=== PATIENT | male | born 1955 | race Caucasian/White ===

== ENCOUNTER 2018-05-16 02:15 | Observation (INO) ==
[2018-05-16] MEDS ORDERED: Levofloxacin 750 MG/150 ML 750 MG/150 ML BAG IVPB ONE (02:38)
[2018-05-16] MEDS ORDERED: Ipratropium/Albuterol Neb 3 ML IH ONE (02:38)
[2018-05-16] MEDS: levoFLOXacin 750 MG TABLET PO ONE ×2 (02:40→02:42)
[2018-05-16 02:43] LABS: Eosinophils % 0.2 %
[2018-05-16 02:45] LABS: Basophils % 0.2 %; Hematocrit 51.1 % (37.5-50.1); Hemoglobin 16.5 g/dL (12.9-16.9); Immature Granulocytes % 0.7 % (0-4); Lymphocytes # 3.1 K/mcL (0.6-4.6); Lymphocytes % 11.9 %; Mean Corpuscular HGB Conc 32.3 g/dL (31.6-35.5); Mean Corpuscular Volume 95.9 fL (83.0-100.0); Mean Platelet Volume 8.6 fL (9.4-12.4); Monocytes # 1.8 K/mcL (0.0-1.3); Monocytes % 6.9 %; Neutrophils # 20.8 K/mcL (1.6-8.9); Platelet Count 284 K/mcL (140-400); Red Blood Count 5.33 M/mcL (4.19-5.50); Red Cell Distribution Width 14.7 % (11.5-14.5); Segmented Neutrophils % 80.1 %
[2018-05-16 02:46] LABS: Basophils # 0.1 K/mcL (0.0-0.2); Eosinophils # 0.1 K/mcL (0.0-0.6)
[2018-05-16 03:05] LABS: BUN/Creatinine Ratio 18 (6-26); Blood Urea Nitrogen 16 mg/dL (8-23); Calcium 8.9 mg/dL (8.6-10.3); Carbon Dioxide 26 mEq/L (23-29); Chloride 107 mEq/L (98-107); Glucose 115 mg/dL (70-105); Osmolality,Calculated 294 (280-300); Potassium 3.8 mEq/L (3.5-5.1); Sodium 141 mEq/L (136-145); Troponin I < 0.03 ng/mL (< 0.04); eGFR For Non-African Americans > 60 (> 60)
--- NOTE | 2018-05-16 03:50 | Emergency Department Note ---
Disposition Clinical Impression: Acute exacerbation of chronic obstructive airways disease Disposition: Admitted As Inpatient Condition: Good Referrals: Forrest Tyson MD [Primary Care Provider] - Time of Disposition: 04:33 General Adult HPI - General Chief complaint: ED Shortness of Breath/Dyspnea Stated complaint: SOB Time Seen by Provider: 05/16/18 02:17 Source: patient, family Limitations: no limitations Nursing Notes Reviewed: Yes Vital Signs Reviewed: Yes - History of Present Illness HPI Narrative: One-week history of increasing shortness of breath. Was diagnosed with pneumonia however is gotten worse since he is been on antibiotics. Does have a productive sputum. Chills. No recorded fever. No chest pain. Has been taking 70 mg of prednisone daily. No relief of his symptoms. Progressively getting worse. Pain Scale: 0 - Related Data Previous Rx's Medication Instructions Recorded Levofloxacin [Levaquin] 500 mg PO DAILY #6 tablet 02/19/17 predniSONE [PredniSONE] 40 mg PO DAILY #4 tablet 02/19/17 Allergies Allergy/AdvReac Type Severity Reaction Status Date / Time No Known Allergies Allergy Verified 02/19/17 16:54 All systems ED: reviewed and negative except as stated. Constitutional: Reports: chills. Denies: fever ENT ED: Reports: congestion Cardiovascular: Denies: chest pain, palpitations, syncope Respiratory: Reports: cough, dyspnea, wheezes, sputum production. Denies: hemoptysis Gastrointestinal: Denies: abdominal pain, nausea, vomiting, diarrhea, hematemesis, melena, hematochezia Genitourinary: Denies: urgency, dysuria, frequency, hematuria Musculoskeletal: Denies: back pain, neck pain Integumentary: Denies: rash Neurological: Denies: headache, weakness Past Medical History - Past Medical History Attestation: Yes The following information was validated with the patient. Source: patient Medical history: Reports: COPD, myocardial infarction - Social History Smoking Status: Current every day smoker Alcohol use: Reports: none Drug use: Reports: none Physical Exam - General Limitations: no limitations General appearance: alert, in distress (Tachypneic, diaphoretic, retracting.) - Head Head exam: atraumatic, normocephalic, normal inspection - Eye Eye exam: Present: normal appearance, PERRL, EOMI - ENT ENT exam: normal exam, normal oropharynx, mucous membranes moist - Neck Neck exam: Present: normal inspection, full ROM, trachea midline - Chest Chest inspection: Present: normal inspection, symmetric chest wall rise. Absent : tenderness, abscess - Respiratory Respiratory exam: Present: respiratory distress, wheezes, accessory muscle use, prolonged expiratory phase, other (Patient tripoding) - Cardiovascular Cardiovascular exam: Present: regular rate, normal rhythm, normal heart sounds - Abdominal Exam Abdominal exam: Present: soft, Non-Tender. Absent: tenderness, distention, guarding, rebound, rigidity, organomegaly, Zavala's sign, Rovsing's sign, tenderness at McBurney's Point - Extremities Exam Extremities exam: Present: normal inspection, full ROM, normal capillary refill. Absent: tenderness, pedal edema - Neurological Exam Neurological exam: Present: alert, oriented X3 - Psychiatric Psychiatric exam: Present: normal affect, normal mood - Skin Skin exam: Present: warm, dry, intact, normal color. Absent: rash, cyanosis, diaphoresis, erythema Course Course Narrative: Male patient presents emergency complaining of one week history of increasing shortness of breath. Patient states that he was seen on Monday 4 days ago and diagnosed with pneumonia. This is at another facility. They wanted to keep him in the hospital however he refused and went home. He states that he was placed on antibiotics this appears to be doxycycline. He states he is not getting better he is actually getting worse. He is having increasing shortness of breath. He cannot ambulate very far without getting short of breath. Generally wears 2 L of oxygen and has had beyond 5. Initially came in with an oxygen saturation in the 76 range. He was tachypneic and tripoding. Had respiratory distress and wheezing throughout. After 3 duo nebs patient does appear to be breathing easier however he is still mildly tachypneic. Denies any chest pain. Denies any fevers but does report some chills. No focal consolidation shown on the chest x-ray. We will admit patient to the hospital for COPD exacerbation. We will place him on Levaquin at this time. Vital Signs Temperature 97.4 F L 05/16/18 02:16 Pulse Rate 68 05/16/18 02:16 Respiratory Rate 24 05/16/18 02:16 Blood Pressure 194/109 05/16/18 02:16 O2 Sat by Pulse Oximetry 95 05/16/18 02:16 Temperature 97.4 F L 05/16/18 02:16 Pulse Rate 80 05/16/18 03:20 Respiratory Rate 24 05/16/18 02:16 Blood Pressure 151/84 05/16/18 03:20 O2 Sat by Pulse Oximetry 95 05/16/18 03:20 Oxygen Delivery Oxygen Delivery Nasal Cannula Medical Decision Making - Medical Records Medical records reviewed: Yes I reviewed the patient's medical records. - Lab Data Lab results reviewed: Yes I reviewed the patient's lab results. Result diagrams: 05/16/18 02:25 05/16/18 02:25 Lab Results 05/16/18 05/16/18 05/16/18 Range/Units 02:25 02:25 02:25 WBC 25.9 H (4.3-11.1) K/mcL RBC 5.33 (4.19-5.50) M/mcL Hgb 16.5 (12.9-16.9) g/dL Hct 51.1 H (37.5-50.1) % MCV 95.9 (83.0-100.0) fL MCH 31.0 (28.0-33.3) pg MCHC 32.3 (31.6-35.5) g/dL RDW 14.7 H (11.5-14.5) % Plt Count 284 (140-400) K/mcL MPV 8.6 L (9.4-12.4) fL Immature Gran % 0.7 (0-4) % Seg Neutrophils % 80.1 % Lymphocytes % 11.9 % Monocytes % 6.9 % Eosinophils % 0.2 % Basophils % 0.2 % Neutrophils # 20.8 H (1.6-8.9) K/mcL Lymphocytes # 3.1 (0.6-4.6) K/mcL Monocytes # 1.8 H (0.0-1.3) K/mcL Eosinophils # 0.1 (0.0-0.6) K/mcL Basophils # 0.1 (0.0-0.2) K/mcL Sodium 141 (136-145) mEq/L Potassium 3.8 (3.5-5.1) mEq/L Chloride 107 (98-107) mEq/L Carbon Dioxide 26 (23-29) mEq/L BUN 16 (8-23) mg/dL Creatinine 0.91 (0.70-1.30) mg/dL Est GFR ( Amer) > 60 (> 60) Est GFR (Non-Af Amer) > 60 (> 60) BUN/Creatinine Ratio 18 (6-26) Glucose 115 H (70-105) mg/dL Calculated Osmolality 294 (280-300) Calcium 8.9 (8.6-10.3) mg/dL Troponin I < 0.03 (< 0.04) ng/mL B-Natriuretic Peptide 128 H (Less than 100) pg/mL - Radiology Data Radiology results reviewed: Yes I reviewed the patient's radiology results. Chest X-Ray 05/16/18 02:34 IMPRESSION: Chronic findings in both lung bases. No acute disease. D/ / Terence Toro MD / Terence Toro MD Interpreting Provider: Terence Toro MD - EKG Data EKG #1 EKG results narrative: Junctional rhythm at a rate of 71. QRS duration is 129. QT is 400. QTC is 423. No signs of acute ischemia. Patient does have a large segment before the QRS complex. This was on previous EKG dated 02/19/2017.
--- NOTE | 2018-05-16 04:48 | Emergency Department Note ---
Disposition Clinical Impression: Acute exacerbation of chronic obstructive airways disease Disposition: Admitted As Inpatient Condition: Good Time of Disposition: 04:33 General Adult HPI - General Chief complaint: ED Shortness of Breath/Dyspnea Stated complaint: SOB Time Seen by Provider: 05/16/18 02:17 Source: patient, family Limitations: no limitations Nursing Notes Reviewed: Yes Vital Signs Reviewed: Yes - History of Present Illness Pain Scale: 0 - Related Data Previous Rx's Medication Instructions Recorded Levofloxacin [Levaquin] 500 mg PO DAILY #6 tablet 02/19/17 predniSONE [PredniSONE] 40 mg PO DAILY #4 tablet 02/19/17 Allergies Allergy/AdvReac Type Severity Reaction Status Date / Time No Known Allergies Allergy Verified 02/19/17 16:54 Constitutional: Reports: chills. Denies: fever ENT ED: Reports: congestion Cardiovascular: Denies: chest pain, palpitations, syncope Respiratory: Reports: cough, dyspnea, wheezes, sputum production. Denies: hemoptysis Gastrointestinal: Denies: abdominal pain, nausea, vomiting, diarrhea, hematemesis, melena, hematochezia Genitourinary: Denies: urgency, dysuria, frequency, hematuria Musculoskeletal: Denies: back pain, neck pain Integumentary: Denies: rash Neurological: Denies: headache, weakness Past Medical History - Past Medical History Medical history: Reports: COPD, myocardial infarction - Social History Smoking Status: Current every day smoker Alcohol use: Reports: none Drug use: Reports: none Physical Exam - General Limitations: no limitations General appearance: alert, in distress (Tachypneic, diaphoretic, retracting.) Course Vital Signs Temperature 97.4 F L 05/16/18 02:16 Pulse Rate 68 05/16/18 02:16 Respiratory Rate 05/16/18 02:16 Blood Pressure 194/109 05/16/18 02:16 O2 Sat by Pulse Oximetry 95 05/16/18 02:16 Temperature 97.4 F L 05/16/18 02:16 Pulse Rate 70 05/16/18 04:19 Respiratory Rate 24 05/16/18 02:16 Blood Pressure 152/98 05/16/18 04:19 O2 Sat by Pulse Oximetry 93 05/16/18 04:19 Oxygen Delivery Oxygen Delivery Nasal Cannula Medical Decision Making - Medical Records Medical records reviewed: Yes I reviewed the patient's medical records. - Lab Data Lab results reviewed: Yes I reviewed the patient's lab results. Result diagrams: 05/16/18 02:25 05/16/18 02:25 Lab Results 05/16/18 05/16/18 05/16/18 Range/Units 02:25 02:25 02:25 WBC 25.9 H (4.3-11.1) K/mcL RBC 5.33 (4.19-5.50) M/mcL Hgb 16.5 (12.9-16.9) g/dL Hct 51.1 H (37.5-50.1) % MCV 95.9 (83.0-100.0) fL MCH 31.0 (28.0-33.3) pg MCHC 32.3 (31.6-35.5) g/dL RDW 14.7 H (11.5-14.5) % Plt Count 284 (140-400) K/mcL MPV 8.6 L (9.4-12.4) fL Immature Gran % 0.7 (0-4) % Seg Neutrophils % 80.1 % Lymphocytes % 11.9 % Monocytes % 6.9 % Eosinophils % 0.2 % Basophils % 0.2 % Neutrophils # 20.8 H (1.6-8.9) K/mcL Lymphocytes # 3.1 (0.6-4.6) K/mcL Monocytes # 1.8 H (0.0-1.3) K/mcL Eosinophils # 0.1 (0.0-0.6) K/mcL Basophils # 0.1 (0.0-0.2) K/mcL Sodium 141 (136-145) mEq/L Potassium 3.8 (3.5-5.1) mEq/L Chloride 107 (98-107) mEq/L Carbon Dioxide 26 (23-29) mEq/L BUN 16 (8-23) mg/dL Creatinine 0.91 (0.70-1.30) mg/dL Est GFR ( Amer) > 60 (> 60) Est GFR (Non-Af Amer) > 60 (> 60) BUN/Creatinine Ratio 18 (6-26) Glucose 115 H (70-105) mg/dL Calculated Osmolality 294 (280-300) Lactic Acid (0.5-2.2) mmol/L Calcium 8.9 (8.6-10.3) mg/dL Troponin I < 0.03 (< 0.04) ng/mL B-Natriuretic Peptide 128 H (Less than 100) pg/mL 05/16/18 Range/Units 02:51 WBC (4.3-11.1) K/mcL RBC (4.19-5.50) M/mcL Hgb (12.9-16.9) g/dL Hct (37.5-50.1) % MCV (83.0-100.0) fL MCH (28.0-33.3) pg MCHC (31.6-35.5) g/dL RDW (11.5-14.5) % Plt Count (140-400) K/mcL MPV (9.4-12.4) fL Immature Gran % (0-4) % Seg Neutrophils % % Lymphocytes % % Monocytes % % Eosinophils % % Basophils % % Neutrophils # (1.6-8.9) K/mcL Lymphocytes # (0.6-4.6) K/mcL Monocytes # (0.0-1.3) K/mcL Eosinophils # (0.0-0.6) K/mcL Basophils # (0.0-0.2) K/mcL Sodium (136-145) mEq/L Potassium (3.5-5.1) mEq/L Chloride (98-107) mEq/L Carbon Dioxide (23-29) mEq/L BUN (8-23) mg/dL Creatinine (0.70-1.30) mg/dL Est GFR ( Amer) (> 60) Est GFR (Non-Af Amer) (> 60) BUN/Creatinine Ratio (6-26) Glucose (70-105) mg/dL Calculated Osmolality (280-300) Lactic Acid 2.5 H (0.5-2.2) mmol/L Calcium (8.6-10.3) mg/dL Troponin I (< 0.04) ng/mL B-Natriuretic Peptide (Less than 100) pg/mL - Radiology Data Radiology results reviewed: Yes I reviewed the patient's radiology results. Chest X-Ray 05/16/18 02:34 IMPRESSION: Chronic findings in both lung bases. No acute disease. D/ / Terence Toro MD / Terence Toro MD Interpreting Provider: Terence Toro MD - EKG Data EKG #1 EKG attestation: Yes I reviewed and interpreted this EKG. EKG results narrative: EKG shows a probable junctional rhythm with a PAC. Ventricular rate 71. Moderate intraventricular conduction delay. No acute ST segment elevation or depression. Critical Care Time Critical Care Time: Yes Total Critical Care Time: 35 Attestation: Critical care performed: Time is exclusive of separately billable procedures. Time includes: direct patient care, patient reassessment, coordination of patient care, interpretation of data (laboratory data, radiology data, and respiratory data), review of patient's medical records, medical consultation and documentation of patient care. Procedures included in critical care time: Procedures excluded from critical care time: Attestation Statement - Attestation Attestation: I, Pavel Mora MD, personally evaluated this patient and discussed their management with the resident physician. I reviewed the resident's note and agree with the documented findings, medical decision making, and plan of care. 62-year-old male with history of COPD presents to the emergency department by ambulance with a complaint of increased difficulty breathing over the past several days. He was seen 3 days ago at another facility and diagnosed with pneumonia but refused admission. He was placed on antibiotics. reports he has gotten progressively worse since. He normally wears oxygen at 2-1/2 L but has increased it to 5 with continued shortness of breath. There has been some productive cough. No fever. No chest pain. On examination patient is a well-developed well-nourished male in moderate respiratory distress. He is alert and oriented 3. No cyanosis. Mild diaphoresis. Breath sounds are decreased bilaterally with diffuse tight bilateral expiratory wheezes. Heart regular rate and rhythm. Abdomen soft and nontender with normal bowel sounds. Labs reviewed. Chest x-ray negative. No acute changes on EKG and unchanged from prior EKG. Patient received triple DuoNeb treatment and IV steroids with some improvement in his breathing but continues to have wheezes. The hospitalist, Dr. Baldwin, was consulted and accepted admission of the patient.
[2018-05-16] MEDS ORDERED: Naloxone 0.4 MG/ML INJ IVP PRN (05:02)
[2018-05-16] MEDS ORDERED: Acetaminophen 325 MG TABLET PO PRN (05:02)
[2018-05-16] MEDS ORDERED: *HR* HYDROcodone/Acet 5/325 mg TABLET PO PRN (05:02)
--- NOTE | 2018-05-16 05:24 | Internal Med History&Physical ---
<Tariq Jaramillo - Last Filed: 05/16/18 05:53> Date of Encounter: 05/16/18 Time of Encounter: 05:08 Internal Medicine - H&P: HPI Chief complaint: SOB Admitted From: Emergency Dept Plans for Post Hospital Care: Home History of present illness: Mr. Nolan is a 62 year old male with past medical history of COPD, CAD status post [place] and CABG, HFpEF, AAA presents to emergency department with complaint of shortness of breath. Patient states his symptoms began Monday morning and have been progressively worsening. He did present to urgent care on Monday and was told he had pneumonia and was started on doxycycline and prednisone. He states that despite this, his symptoms continued to worsen. He is oxygen dependent at home wearing 2.5 L continuously but states he is only compliant at nights. He states he has had to increase his oxygen usage to 3 L and is still short of breath after walking approximately 20 feet. At baseline he can walk couple 100 feet before he becomes dyspneic. He also admits to associated cough with thick white sputum which the change from his baseline as it occurs throughout the day and is thicker. Denies any symptoms of fevers, chills, chest pain, nausea, vomiting, abdominal pain, changes in bowel movements, urinary symptoms. He does have baseline numbness and tingling. Denies any symptoms orthopnea or PND or lower shortly swelling. In the emergency department, vital signs significant for hypertension in 194/109 , respiratory rate 24 and he was markedly saturating and 70s on presentation with improvement to low 90s on 3 L of oxygen via nasal cannula. Vital signs were significant for a WBC of 25.9, lactic acid of 2.5, BNP of 128. He was reportedly much improved on duo nebs 3. Chest x-ray showed chronic findings in both lung bases with no acute disease. Most recent echocardiogram on 03/01/18 shows ejection fraction of 60-65% with mild left ventricular diastolic dysfunction. Past medical history as above Past surgical history includes multiple orthopedic surgeries, CABG Social history: One pack per day smoker since teenage years, previously 2 packs per day. Denies alcohol or recreational drug use Past Med Surg Social Fam HX - Past Medical History Medical history: COPD, myocardial infarction - Past Surgical History Additional surgical history: bypass, spinal sx - Social History Smoking Status: Current every day smoker Alcohol use: none Drug use: none Internal Medicine - H&P: Meds Albuterol Sulfate [Ventolin Hfa] 2 puff IH BID PRN 05/16/18 [History] Atorvastatin [Lipitor] 40 mg PO HS 05/16/18 [History] Benzonatate [Tessalon] 100 mg PO TID PRN 05/16/18 [History] Budesonide/Formoterol 160/4.5 [Symbicort 160/4.5] 2 puff IH BIDR 05/16/18 [ History] Clopidogrel [Plavix] 75 mg PO DAILY 05/16/18 [History] Cyanocobalamin (B-12) [Vitamin B12] 1,000 mcg IM QMONTH 05/16/18 [History] Doxycycline Hyclate [Vibramycin] 100 mg PO BID 05/16/18 [History] Lisinopril [Zestril] 10 mg PO DAILY 05/16/18 [History] Oxycodone HCl 15 mg PO Q6H PRN 05/16/18 [History] PredniSONE [Deltasone] 20 mg PO DAILY 05/16/18 [History] Tamsulosin [Flomax] 0.4 mg PO DAILY 05/16/18 [History] Testosterone Cypionate [Depo-Testosterone] 200 mg IM Q2W 05/16/18 [History] Tiotropium [Spiriva] 2 puff IH DAILY 05/16/18 [History] 3 Allergy/AdvReac Type Severity Reaction Status Date / Time No Known Allergies Allergy Verified 02/19/17 16:54 All Systems PM: A 10-system review of systems was performed and is negative for pertinent findings except as documented above in the HPI. - Constitutional Constitutional: chills, no fever(s), no lethargy - Cardiovascular Cardiovascular ROS IM: dyspnea, dyspnea on exertion, no chest pain, no diaphoresis, no edema, no orthopnea, no syncope - Respiratory Respiratory: cough, dyspnea, dyspnea on exertion, wheezing, chest congestion, change in phlegm color, no hemoptysis, no pain on inspiration, no pain with cough - Gastrointestinal Gastrointestinal: no nausea, no vomiting - Integumentary Integumentary IM: no rash - Neurological Neurological ROS: numbness, tingling - Constitutional Vitals: Temp Pulse Resp BP Pulse Ox 97.4 F L 70 24 152/98 93 05/16/18 02:16 08/01/18 04:19 05/16/18 02:16 05/16/18 04:19 05/16/18 04:19 Exam: Gen.: Vitals noted. No acute distress. AAOx3. Sitting up comfortably in bed. Speaking in full sentences HEENT: PERRL/EOMI, oropharynx clear, Normocephalic, atraumatic, moist mucous membranes Cardiac: RRR, no murmur, +S1/S2, occasional PVC Pulmonary: Wheezes present in bilateral bases more prominent on the right, diminished breath sounds, equal chest expansion Abdomen: soft, nontender, BS noted, no guarding MSK: ROM intact, no joint swelling noted Extremities: no BLE edema, nontender calf, no cyanosis or clubbing Neuro: A&Ox3, moves all extremities, no focal deficits Psych: Appropriate mood and behavior Internal Med - H&P Results - Labs CBC & Chem 7: 05/16/18 02:25 05/16/18 02:25 - Assessment and plan (1) Acute and chronic respiratory failure Current Visit: Yes Status: Acute Assessment and plan: - Acute on chronic respiratory failure likely secondary to COPD exacerbation - Patient complains of cough, change in sputum. Denies orthopnea or extremity swelling. No fevers -Chest x-ray were department shows chronic changes with no acute disease. 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 - Home use of Spiriva, Symbicort, albuterol inhalers - Failed outpatient steroids, doxycycline Plan - Continue supplemental oxygen as needed - Krista Arevalo scheduled, albuterol when necessary - Solu-Medrol 40 mg every 6 hours - Continue home Symbicort Qualifiers: Respiratory failure complication: hypoxia Qualified Code(s): J96.21 - Acute and chronic respiratory failure with hypoxia (2) Acute exacerbation of chronic obstructive airways disease Current Visit: Yes Status: Acute Assessment and plan: As above in acute and chronic respiratory failure (3) CAD (coronary artery disease) Current Visit: Yes Status: Acute Assessment and plan: - Denies chest pain, troponin unremarkable - EKG reviewed showing junctional rhythm which is consistent with previous - Continue home medications Qualifiers: Coronary Disease-Associated Artery/Lesion type: bypass graft [place] vs. transplanted heart: [place] heart Associated angina: without angina Qualified Code(s): I25.810 - Atherosclerosis of coronary artery bypass graft(s) without angina pectoris (4) Heart failure with preserved ejection fraction Current Visit: Yes Status: Chronic Assessment and plan: - Does not appear to be in acute exacerbation and more likely related to COPD as above Most recent echo as in history of present illness showing preserved ejection fraction and mild diastolic dysfunction Appears euvolemic on exam (5) Leukocytosis Current Visit: Yes Status: Acute Assessment and plan: - WBC elevation of 25 on presentation - Less likely etiology of infectious given he was started on prednisone 70 mg by urgent care - No pneumonia appreciated on chest x-ray - Antibiotics as above, continue monitor and escalate if necessary in future Qualifiers: Leukocytosis type: unspecified Qualified Code(s): D72.829 - Elevated white blood cell count, unspecified (6) Hypertension Current Visit: Yes Status: Acute Assessment and plan: - Uncontrolled on presentation at 194/109 - Has improved to 152/98 as underlying respiratory distress has resolved - We will continue home medications and monitor Qualifiers: Hypertension type: essential hypertension Qualified Code(s): I10 - Essential (primary) hypertension (7) DVT prophylaxis Current Visit: Yes Status: Acute Assessment and plan: - Heparin 5000 units every 12 hours (8) Tobacco abuse Current Visit: Yes Status: Chronic Assessment and plan: Patient unfortunately reports continuation of smoking of one pack per day. He states he has cut back from 2 packs per day. He started when he was a teenager. We did discuss at length the detrimental effects of cigarette smoking on his COPD as well as other medical issues. He acknowledges understanding to this and states that he is trying to quit after this admission. We will start him on nicotine patch while admitted - Time Spent With Patient Total time spent is greater than 50% in coordination of care (as documented) at patient's floor/unit and/or counseling patient: <Nidia Plascencia - Last Filed: 05/17/18 02:52> Date of Encounter: 05/17/18 Internal Medicine - H&P: HPI History of present illness: Mr. Nolan is a 62 year old male All Systems PM: A 10-system review of systems was performed and is negative for pertinent findings except as documented above in the HPI. - Constitutional Vitals: Temp Pulse Resp BP Pulse Ox 98.1 F 84 28 196/91 93 05/17/18 00:41 05/17/18 00:41 05/17/18 02:00 05/17/18 00:41 05/17/18 02:00 Internal Med - H&P Results - Labs CBC & Chem 7: 05/16/18 02:25 05/16/18 02:25 - Impressions ITS Impressions Pulmonary Perfusion Imaging 05/16/18 11:56 IMPRESSION: Low probability for pulmonary embolus. D/ / 05/16/2018 13:08:45 Sebastian Corey MD / lan Interpreting Provider: Sebastian Corey MD - Attending Attestation Seen and assessed. Agree with resident plan. Continue management for acute COPD exacerbation - Assessment and plan (1) Acute exacerbation of chronic obstructive airways disease Current Visit: Yes Status: Acute (2) Acute and chronic respiratory failure Current Visit: Yes Status: Acute Qualifiers: Respiratory failure complication: hypoxia Qualified Code(s): J96.21 - Acute and chronic respiratory failure with hypoxia (3) CAD (coronary artery disease) Current Visit: Yes Status: Acute Qualifiers: Coronary Disease-Associated Artery/Lesion type: bypass graft [place] vs. transplanted heart: [place] heart Associated angina: without angina Qualified Code(s): I25.810 - Atherosclerosis of coronary artery bypass graft(s) without angina pectoris (4) Heart failure with preserved ejection fraction Current Visit: Yes Status: Chronic (5) DVT prophylaxis Current Visit: Yes Status: Acute (6) Leukocytosis Current Visit: Yes Status: Acute Qualifiers: Leukocytosis type: unspecified Qualified Code(s): D72.829 - Elevated white blood cell count, unspecified (7) Hypertension Current Visit: Yes Status: Acute Qualifiers: Hypertension type: essential hypertension Qualified Code(s): I10 - Essential (primary) hypertension (8) Tobacco abuse Current Visit: Yes Status: Chronic - Time Spent With Patient Total time spent is greater than 50% in coordination of care (as documented) at patient's floor/unit and/or counseling patient:
[2018-05-16] MEDS: Nicotine 7 MG PATCH.TD24 TD SCH (07:28)
[2018-05-16] MEDS: MethylPREDNISolone 40 MG/ML VIAL IVP SCH ×4 (07:28→23:49)
[2018-05-16] MEDS: *HR* Heparin 5,000 UNIT/ML VIAL SQ SCH ×2 (07:28→18:09)
--- NOTE | 2018-05-16 10:03 | Sepsis Event Note ---
Sepsis Event Note - Evaluation Sepsis Screen: No Definite Risk Current Stage of Suspected Sepsis: ruled out Reason for ruling out sepsis: Patient has been on steroids prior to admission, may account for his leukocytosis He has no source at this time, patient has no fever or hypothermia, he has no tachycardia. sepsis is not present at this time His resp symptoms are due to his COPD Possible Source of Sepsis: other (sepsis is unlikely) - Focused Exam Date of Encounter: 05/16/18 Time of Encounter: 10:02 Vital Signs: Vital Signs Temp Pulse Resp BP Pulse Ox 05/16/18 07:24 97.9 F 79 17 159/84 94 05/16/18 05:24 97.5 F L 69 17 171/91 96 Respiratory Exam: Present: wheezes Cardiovascular Exam: Present: RRR, S1, S2 Capillary Refill: > 2 seconds Peripheral Pulse Strength: 3+ normal Peripheral Pulse Location: Pedal Skin Exam: normal turgor - Bedside Monitoring Bedside Ultrasound Performed: No Passive Leg raise/fluid bolus: not performed
[2018-05-16] MEDS: Ipratropium/Albuterol Neb 3 ML IH SCH ×3 (10:16→22:14)
[2018-05-16] MEDS: Budesonide/Formoterol 160/4.5 1 PUFF INH IH SCH ×2 (10:17→22:14)
[2018-05-16] MEDS ORDERED: Benzonatate 100 MG CAPSULE PO PRN (11:53)
[2018-05-16] MEDS: *HR* OxyCODONE Immed Rel 15 MG TABLET PO PRN ×2 (12:27→18:44)
[2018-05-16] MEDS ORDERED: *HR* LORazepam 0.5 MG TABLET PO ONE (13:33)
--- NOTE | 2018-05-16 21:23 | Electrocardiograph Report ---
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
[2018-05-16] MEDS: Levofloxacin 750 MG/150 ML 750 MG/150 ML BAG IVPB SCH (23:39)
[2018-05-17] MEDS: *HR* OxyCODONE Immed Rel 15 MG TABLET PO PRN ×3 (01:15→17:51)
[2018-05-17] MEDS ORDERED: *HR* Morphine 2 MG/ML SYRINGE IVP ONE (01:52)
[2018-05-17] MEDS ORDERED: Furosemide 20 MG/2 ML VIAL IVP ONE ×2 (01:54→01:57)
[2018-05-17] MEDS ORDERED: Terbutaline 1 MG/ML VIAL SQ ONE (01:55)
[2018-05-17] MEDS: Ipratropium/Albuterol Neb 3 ML IH SCH ×4 (01:56→22:27)
--- NOTE | 2018-05-17 02:01 | Event Note ---
Date of Encounter: 05/17/18 Time of Encounter: 01:57 The patient is seen to have significant shortness of breath and tightness on chest auscultation. He is refusing nebulizer therapy and remains adamant that it makes his breathing worse. He has not received therapy in about 4 hours. He was given low dose lorazepam during the day to calm him down. He is expressing his wish to be transferred to another hospital however in his acute state of dyspnea resulting in hypoxia and possible hypercarbia clouding his judgement, we will continue to observe and try to manage this acute attack. With ongoing refusal for nebulizer therapy, will administer 2mg of morphine to calm him down and achieve some dilation in addition to terbutaline SQ 0.25mg for beta agonist effect, 20mg furosemide to dry out secretions and remove fluid and have respiratory therapist present to place on nebulizer. He also refuses BiPap therapy.
[2018-05-17 02:56] LABS: ABG Base Excess 4 mEq/L (-2 to 3); ABG HCO3 28 mEq/L (21-27); ABG Oxygen Saturation 94 % (95-98); ABG PCO2 39 mmHg (35-45); ABG PH 7.46 pH Units (7.32-7.45); ABG PO2 67 mmHg (85-104); ABG TCO2 29 mEq/L (20-26)
[2018-05-17 04:31] LABS: Basophils % 0.1 %; Hematocrit 51.6 % (37.5-50.1); Lymphocytes # 0.8 K/mcL (0.6-4.6); Lymphocytes % 3.2 %; Mean Corpuscular HGB Conc 32.9 g/dL (31.6-35.5); Mean Platelet Volume 8.7 fL (9.4-12.4); Monocytes # 0.6 K/mcL (0.0-1.3); Monocytes % 2.7 %; Platelet Count 279 K/mcL (140-400); Red Blood Count 5.49 M/mcL (4.19-5.50); Red Cell Distribution Width 14.5 % (11.5-14.5)
[2018-05-17 04:49] LABS: BUN/Creatinine Ratio 17 (6-26); Blood Urea Nitrogen 14 mg/dL (8-23); Calcium 9.1 mg/dL (8.6-10.3); Carbon Dioxide 27 mEq/L (23-29); Chloride 104 mEq/L (98-107); Glucose 147 mg/dL (70-105); Osmolality,Calculated 291 (280-300); Potassium 3.6 mEq/L (3.5-5.1); Sodium 139 mEq/L (136-145); eGFR For Non-African Americans > 60 (> 60)
[2018-05-17] MEDS ORDERED: *HR* LORazepam 1 MG TABLET PO ONE (04:51)
[2018-05-17 04:55] LABS: Platelet Estimate Normal (Normal); Toxic Granulation Present (Not Present)
[2018-05-17] MEDS: MethylPREDNISolone 40 MG/ML VIAL IVP SCH ×4 (05:23→23:11)
[2018-05-17] MEDS: *HR* Heparin 5,000 UNIT/ML VIAL SQ SCH ×2 (05:23→18:00)
[2018-05-17] MEDS: Budesonide/Formoterol 160/4.5 1 PUFF INH IH SCH ×2 (07:38→22:27)
[2018-05-17] MEDS ORDERED: Levofloxacin 500 MG/100 ML 500 MG/100 ML BAG IVPB SCH (09:00)
[2018-05-17] MEDS ORDERED: Levofloxacin 750 MG/150 ML 750 MG/150 ML BAG IVPB SCH (09:00)
[2018-05-17] MEDS: Nicotine 7 MG PATCH.TD24 TD SCH (10:26)
--- NOTE | 2018-05-17 13:47 | Internal Med Progress Note ---
Hospitalist Progress Note - Encounter Date of Encounter: 05/17/18 Time of Encounter: 11:10 - Subjective Interval History: 62-year-old male with COPD, chronic hypoxic respiratory failure not compliant with home oxygen, tobacco abuse,CAD status post [place] and CABG, HFpEF, AAA Admitted and being managed for acute on chronic respiratory failure, uncontrolled hypertension, COPD exacerbation. The patient continued to refuse treatment yesterday, refuse BiPAP, refused breathing treatments. VQ scan done 05/16 shows low probability for pulmonary embolism. The patient is seen and examined at the bedside this morning, sitting up in bed , reports minimal improvement in breathing, now accepting treatment. Continues to refuse BiPAP. ABG done by the night team this morning shows hypoxia. PCO2 normal limits. - Exam Vitals: Temp Pulse Resp BP Pulse Ox 97.6 F 90 16 153/72 89 05/17/18 11:22 05/17/18 11:22 05/17/18 11:22 05/17/18 11:22 05/17/18 11:22 Exam: Gen.: Vitals noted. No acute distress. AAOx3. Sitting up comfortably in bed. Speaking in full sentences HEENT: PERRL/EOMI, oropharynx clear, Normocephalic, atraumatic, moist mucous membranes Cardiac: RRR, no murmur, +S1/S2, occasional PVC Pulmonary: Wheezes present in bilateral bases more prominent on the right, diminished breath sounds, equal chest expansion Abdomen: soft, non-tender, BS noted, no guarding MSK: ROM intact, no joint swelling noted Extremities: no BLE edema, nontender calf, no cyanosis or clubbing Neuro: A&Ox3, moves all extremities, no focal deficits Psych: Appropriate mood and behavior - Assessment and Plan (1) Acute exacerbation of chronic obstructive airways disease Current Visit: Yes Status: Acute Assessment and Plan: Continue current management. (2) Acute and chronic respiratory failure Current Visit: Yes Status: Acute Assessment and Plan: Acute on chronic respiratory failure likely secondary to COPD exacerbation Chest x-ray wshows chronic changes with no acute disease. 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 Currently on 3 L continue same. Continue Levaquin, DuoNebs scheduled, albuterol when necessary Continue Solu-Medrol 40 mg every 6 hours Continue home Symbicort Continues to refuse BiPAP (3) CAD (coronary artery disease) Current Visit: Yes Status: Chronic Assessment and Plan: Denies chest pain, troponin unremarkable EKG reviewed showing junctional rhythm which is consistent with previous Continue home medications (4) Heart failure with preserved ejection fraction Current Visit: Yes Status: Chronic Assessment and Plan: Euvolemic at this time. Prior echo 03/02 noted for preserved EF. Continue home medications. (5) DVT prophylaxis Current Visit: Yes Status: Acute Assessment and Plan: - Heparin 5000 units every 12 hours (6) Leukocytosis Current Visit: Yes Status: Acute Assessment and Plan: Patient was taking 70 mg of prednisone daily by mouth as outpatient. Note pneumonia on chest x-ray. Afebrile. Continue Solu-Medrol. Continue to monitor. (7) Hypertension Current Visit: Yes Status: Chronic Assessment and Plan: Uncontrolled on presentation at 194/109 Now improved We will continue home medications and monitor (8) Tobacco abuse Current Visit: Yes Status: Chronic Assessment and Plan: Continues to smoke 1 pack per day. Tobacco cessation counseling done. Continue nicotine replacement therapy. - Time Spent with Patient Total time spent is greater than 50% in coordination of care (as documented) at patient's floor/unit and/or counseling patient: Plan of Care Discussed with: patient Internal Medicine: Result - Labs CBC & Chem 7: 05/17/18 04:10 05/17/18 04:10 Labs: Short CBC 05/17/18 Range/Units 04:10 WBC 23.6 H (4.3-11.1) K/mcL Hgb 17.0 H (12.9-16.9) g/dL Hct 51.6 H (37.5-50.1) % Plt Count 279 (140-400) K/mcL Neutrophils # 22.0 H (1.6-8.9) K/mcL BMP 05/17/18 04:10 Sodium 139 Potassium 3.6 Chloride 104 Carbon Dioxide 27 BUN 14 Creatinine 0.84 Glucose 147 H Calcium 9.1 - ABG Interpretation ABG results: ABG ABG pH 7.46 pH Units (7.32-7.45) H 05/17/18 02:51 ABG pCO2 39 mmHg (35-45) 05/17/18 02:51 ABG pO2 67 mmHg (85-104) L 05/17/18 02:51 ABG O2 Saturation 94 % (95-98) L 05/17/18 02:51 Consult Discharge Plan - Plan Referrals: Forrest Tyson MD [Primary Care Provider] - 05/23/18 9:45 am (Please follow up as schedule...) (2) Acute and chronic respiratory failure Qualifiers: Respiratory failure complication: hypoxia Qualified Code(s): J96.21 - Acute and chronic respiratory failure with hypoxia (3) CAD (coronary artery disease) Qualifiers: Coronary Disease-Associated Artery/Lesion type: bypass graft [place] vs. transplanted heart: [place] heart Associated angina: without angina Qualified Code(s): I25.810 - Atherosclerosis of coronary artery bypass graft(s) without angina pectoris (6) Leukocytosis Qualifiers: Leukocytosis type: unspecified Qualified Code(s): D72.829 - Elevated white blood cell count, unspecified (7) Hypertension Qualifiers: Hypertension type: essential hypertension Qualified Code(s): I10 - Essential (primary) hypertension
[2018-05-17] MEDS: Levofloxacin 750 MG/150 ML 750 MG/150 ML BAG IVPB SCH (23:11)
[2018-05-18] MEDS: Ipratropium/Albuterol Neb 3 ML IH SCH ×4 (04:33→22:03)
[2018-05-18] MEDS: MethylPREDNISolone 40 MG/ML VIAL IVP SCH (05:22)
[2018-05-18] MEDS: *HR* Heparin 5,000 UNIT/ML VIAL SQ SCH ×2 (05:22→17:08)
[2018-05-18] MEDS: predniSONE 20 MG TABLET PO SCH (08:04)
[2018-05-18] MEDS: Nicotine 7 MG PATCH.TD24 TD SCH (08:04)
[2018-05-18] MEDS: *HR* OxyCODONE Immed Rel 15 MG TABLET PO PRN ×3 (08:06→23:30)
[2018-05-18] MEDS: Budesonide/Formoterol 160/4.5 1 PUFF INH IH SCH ×2 (08:28→22:02)
[2018-05-18] MEDS ORDERED: amLODIPine 5 MG TABLET PO SCH (09:00)
--- NOTE | 2018-05-18 09:07 | Internal Med Progress Note ---
Hospitalist Progress Note - Encounter Date of Encounter: 05/18/18 Time of Encounter: 09:06 - Subjective Interval History: 62-year-old male with COPD, chronic hypoxic respiratory failure not compliant with home oxygen, tobacco abuse,CAD status post [place] and CABG, HFpEF, AAA Admitted and being managed for acute on chronic respiratory failure, uncontrolled hypertension, COPD exacerbation. VQ scan done 05/16 shows low probability for pulmonary embolism. The patient is seen and examined at the bedside this morning, sitting up in bed , reports minimal improvement in breathing, now accepting treatment. Continues to refuse BiPAP. ABG done 05/17 shows hypoxia. PCO2 normal limits. 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 No acute distress. AAOx3. Sitting up comfortably in bed. Speaking in full sentences HEENT: PERRL/EOMI, oropharynx clear, Normocephalic, atraumatic, moist mucous membranes Cardiac: RRR, no murmur, +S1/S2, occasional PVC Pulmonary: Wheezes present in bilateral bases more prominent on the right, diminished breath sounds, equal chest expansion Abdomen: soft, non-tender, BS noted, no guarding MSK: ROM intact, no joint swelling noted Extremities: no BLE edema, nontender calf, no cyanosis or clubbing Neuro: A&Ox3, moves all extremities, no focal deficits Psych: Appropriate mood and behavior - Assessment and Plan (1) Acute exacerbation of chronic obstructive airways disease Current Visit: Yes Status: Acute Assessment and Plan: Continue current management. Change solumedrol to prednisone Plan for prolonged taper (2) Acute and chronic respiratory failure Current Visit: Yes Status: Acute Assessment and Plan: Acute on chronic respiratory failure likely secondary to COPD exacerbation Chest x-ray wshows chronic changes with no acute disease. 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 Currently on 3 L continue same. Continue Levaquin, DuoNebs scheduled, albuterol when necessary Continue prednisone Continue home Symbicort Continues to refuse BiPAP Pulm eval today patient is full code (3) CAD (coronary artery disease) Current Visit: Yes Status: Chronic Assessment and Plan: Denies chest pain, troponin unremarkable EKG reviewed showing junctional rhythm which is consistent with previous Continue home medications (4) Heart failure with preserved ejection fraction Current Visit: Yes Status: Chronic Assessment and Plan: Euvolemic at this time. Prior echo 03/02 noted for preserved EF. Continue home medications. (5) DVT prophylaxis Current Visit: Yes Status: Acute Assessment and Plan: - Heparin 5000 units every 12 hours (6) Leukocytosis Current Visit: Yes Status: Acute Assessment and Plan: Patient was taking 70 mg of prednisone daily by mouth as outpatient. No pneumonia on chest x-ray. Afebrile. Continue prednsione Continue to monitor. (7) Hypertension Current Visit: Yes Status: Chronic Assessment and Plan: Uncontrolled on presentation at 194/109 Remains uncontrolled add norvasc to current regimen Titrate prn Continue to monitor (8) Tobacco abuse Current Visit: Yes Status: Chronic Assessment and Plan: Continues to smoke 1 pack per day. Tobacco cessation counseling done. Continue nicotine replacement therapy. - Time Spent with Patient Total time spent is greater than 50% in coordination of care (as documented) at patient's floor/unit and/or counseling patient: Plan of Care Discussed with: patient Internal Medicine: Result - Labs CBC & Chem 7: 05/17/18 04:10 05/17/18 04:10 - ABG Interpretation ABG results: ABG ABG pH 7.46 pH Units (7.32-7.45) H 05/17/18 02:51 ABG pCO2 39 mmHg (35-45) 05/17/18 02:51 ABG pO2 67 mmHg (85-104) L 05/17/18 02:51 ABG O2 Saturation 94 % (95-98) L 05/17/18 02:51 Consult Discharge Plan - Plan Referrals: Forrest Tyson MD [Primary Care Provider] - 05/23/18 9:45 am (Please follow up as schedule...) (2) Acute and chronic respiratory failure Qualifiers: Respiratory failure complication: hypoxia Qualified Code(s): J96.21 - Acute and chronic respiratory failure with hypoxia (3) CAD (coronary artery disease) Qualifiers: Coronary Disease-Associated Artery/Lesion type: bypass graft [place] vs. transplanted heart: [place] heart Associated angina: without angina Qualified Code(s): I25.810 - Atherosclerosis of coronary artery bypass graft(s) without angina pectoris (6) Leukocytosis Qualifiers: Leukocytosis type: unspecified Qualified Code(s): D72.829 - Elevated white blood cell count, unspecified (7) Hypertension Qualifiers: Hypertension type: essential hypertension Qualified Code(s): I10 - Essential (primary) hypertension
[2018-05-18] MEDS ORDERED: *HR* LORazepam 0.5 MG TABLET PO ONE (10:23)
--- NOTE | 2018-05-18 11:27 | Pulmonology Consult Note ---
<Karthik Oliva - Last Filed: 05/18/18 11:07> Date of Encounter: 05/18/18 Time of Encounter: 11:07 Assessment and Plan (1) Acute and chronic respiratory failure Current Visit: Yes Status: Acute Patient is well known to clinic for COPD His acute respiratory failure with hypoxia is likely secondary to COPD exacerbation Agree with current treatment plan of antibiotics, bronchodilators, inhaled and oral systemic steroids, and incentive inspirometry Patient had previous ABG revealing combined acute respiratory and metabolic alkalosis, will order follow up VBG CXR showed chronic changes, no acute process and pulmonary perfusion scan was low risk for PE Most recent chest CT showed small stable nodularities and chronic atelectatic changes, repeat not currently indicated Most recent PFT showed severe obstructive process, improvement with bronchodilators, and severe reduction in diffusion capacity Will attempt further education on smoking cessation, patient has been previously educated in clinic Qualifiers: Respiratory failure complication: hypoxia Qualified Code(s): J96.21 - Acute and chronic respiratory failure with hypoxia (2) Acute exacerbation of chronic obstructive airways disease Current Visit: Yes Status: Acute Treatment plan as for acute and chronic respiratory failure This patient will require close outpatient follow up Recommend pulmonary rehabilitation (3) Heart failure with preserved ejection fraction Current Visit: Yes Status: Chronic Most recent echocardiogram showed preserved ejection fraction, repeat not currently indicated, management by primary team (4) Leukocytosis Current Visit: Yes Status: Acute White count currently 23.6, likely due to continuous steroid use, patient afebrile, currently on Levaquin, will continue to monitor Qualifiers: Leukocytosis type: unspecified Qualified Code(s): D72.829 - Elevated white blood cell count, unspecified (5) Hypertension Current Visit: Yes Status: Chronic Management per primary team Qualifiers: Hypertension type: essential hypertension Qualified Code(s): I10 - Essential (primary) hypertension (6) Tobacco abuse Current Visit: Yes Status: Chronic Will attempt further cessation education History of Present Illness Consult date: 05/18/18 Requesting physician: Kurtis Ware Reason for consult: COPD Chief complaint: COPD exacerbation History of present illness: Patient seen and examined this morning. Mr. Nolan is a 62 year old male with a past medical history of COPD, CAD with [place] and CABG, AAA with repair, HFpEF, and multiple spinal surgeries. He states he began having increased difficulty breathing starting 1 week ago, with worsening progression. This caused him to present to Urgent Care 5 days ago where he was given antibiotics and steroids for COPD exacerbation. 3 Days ago he presented to the ED for worsening shortness of breath and dyspnea. In the ED he was markedly hypertensive at 194/ 109, tachypneic, and saturating in 70s. Labs significant for Leukocytosis, Lactic Acidosis, and elevated BNP. CXR showed chronic changes without acute process. He was admitted and started on supplemental oxygen, Levaquin, Duonebs, PRN albuterol, Solumedrol, Symbicort. Steroids have since been de-escalated to oral prednisone. According to nursing patient has also been refusing BiPAP and some nebulizer treatments. Patient admits to current smoking with approximately 50 pack year history. Denies alcohol or drug use. He lives at home with , son, dog and cat. 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 Past Med Surg Social Fam HX - Past Medical History Medical history: COPD, myocardial infarction Psychiatric history: no psych history - Past Surgical History Additional surgical history: bypass, spinal sx - Social History Smoking Status: Current every day smoker Packs per day: 1 Smokeless Tobacco Status: No Alcohol use: none Drug use: none Medications and Allergies Albuterol Sulfate [Ventolin Hfa] 2 puff IH BID PRN 05/16/18 [History] Atorvastatin [Lipitor] 40 mg PO HS 05/16/18 [History] Benzonatate [Tessalon] 100 mg PO TID PRN 05/16/18 [History] Budesonide/Formoterol 160/4.5 [Symbicort 160/4.5] 2 puff IH BIDR 05/16/18 [ History] Clopidogrel [Plavix] 75 mg PO DAILY 05/16/18 [History] Cyanocobalamin (B-12) [Vitamin B12] 1,000 mcg IM QMONTH 05/16/18 [History] Doxycycline Hyclate [Vibramycin] 100 mg PO BID 05/16/18 [History] Lisinopril [Zestril] 10 mg PO DAILY 05/16/18 [History] Oxycodone HCl 15 mg PO Q6H PRN 05/16/18 [History] PredniSONE [Deltasone] 20 mg PO DAILY 05/16/18 [History] Tamsulosin [Flomax] 0.4 mg PO DAILY 05/16/18 [History] Testosterone Cypionate [Depo-Testosterone] 200 mg IM Q2W 05/16/18 [History] Tiotropium [Spiriva] 2 puff IH DAILY 05/16/18 [History] 3 Allergy/AdvReac Type Severity Reaction Status Date / Time No Known Allergies Allergy Verified 02/19/17 16:54 All Systems: The remainder of the systems were reviewed and are negative Review of Systems: Patient admits to shortness of breath, chest tightness, lightheadedness on standing, mild heartburn, and stress urinary urgency, and neck/back pain. He denies abdominal pain, nausea or vomiting, headache, confusion. Physical Examination Vital Signs: Vital Signs, Last 4 Hours Resp Pulse Ox 05/18/18 08:45 95 05/18/18 08:28 18 95 Patient in no acute distress Alert and oriented x3, Anxious affect Heart is in regular rate and rhythm without murmur or gallop Lungs are clear to auscultation with accessory muscle use, no wheeze or rhonchi , no diminished lung sounds Patient is saturating in 80s and 90s on 3L, depending on activity such as talking or standing Abdomen soft and non tender with normal bowel sounds Legs are non edematous, fingernail clubbing present Skin is warm and dry, face is flushed Results - Laboratory Findings CBC and BMP: 05/17/18 04:10 05/17/18 04:10 ABG ABG pH 7.46 pH Units (7.32-7.45) H 05/17/18 02:51 ABG pCO2 39 mmHg (35-45) 05/17/18 02:51 ABG pO2 67 mmHg (85-104) L 05/17/18 02:51 ABG O2 Saturation 94 % (95-98) L 05/17/18 02:51 Abnormal lab findings: Abnormal lab results WBC 23.6 K/mcL (4.3-11.1) H 05/17/18 04:10 Hgb 17.0 g/dL (12.9-16.9) H 05/17/18 04:10 Hct 51.6 % (37.5-50.1) H 05/17/18 04:10 MPV 8.7 fL (9.4-12.4) L 05/17/18 04:10 Neutrophils # 22.0 K/mcL (1.6-8.9) H 05/17/18 04:10 Toxic Granulation Present (Not Present) A 05/17/18 04:10 ABG pH 7.46 pH Units (7.32-7.45) H 05/17/18 02:51 ABG pO2 67 mmHg (85-104) L 05/17/18 02:51 ABG HCO3 28 mEq/L (21-27) H 05/17/18 02:51 ABG Total CO2 29 mEq/L (20-26) H 05/17/18 02:51 ABG O2 Saturation 94 % (95-98) L 05/17/18 02:51 ABG Base Excess 4 mEq/L (-2 to 3) H 05/17/18 02:51 Glucose 147 mg/dL (70-105) H 05/17/18 04:10 B-Natriuretic Peptide 128 pg/mL (Less than 100) H 05/16/18 02:25 - Clinical Findings Intake & Output: Intake & Output 05/17/18 05/18/18 05/18/18 23:59 07:59 15:59 Intake Total 720 / 720 240 / 240 Output Total 150 / 150 800 / 800 Balance 570 / 570 -800 / -800 240 / 240 Weight 86.8 kg Consult Discharge Plan - Plan Referrals: Forrest Tyson MD [Primary Care Provider] - 05/23/18 9:45 am (Please follow up as schedule...) <Aide Whiteside - Last Filed: 05/18/18 14:24> Date of Encounter: 05/18/18 All Systems: The remainder of the systems were reviewed and are negative Physical Examination Vital Signs: Vital Signs, Last 4 Hours Temp Pulse Resp BP Pulse Ox 05/18/18 11:17 97.8 F 85 17 143/79 90 Results - Laboratory Findings CBC and BMP: 05/17/18 04:10 05/17/18 04:10 ABG ABG pH 7.46 pH Units (7.32-7.45) H 05/17/18 02:51 ABG pCO2 39 mmHg (35-45) 05/17/18 02:51 ABG pO2 67 mmHg (85-104) L 05/17/18 02:51 ABG O2 Saturation 94 % (95-98) L 05/17/18 02:51 Abnormal lab findings: Abnormal lab results WBC 23.6 K/mcL (4.3-11.1) H 05/17/18 04:10 Hgb 17.0 g/dL (12.9-16.9) H 05/17/18 04:10 Hct 51.6 % (37.5-50.1) H 05/17/18 04:10 MPV 8.7 fL (9.4-12.4) L 05/17/18 04:10 Neutrophils # 22.0 K/mcL (1.6-8.9) H 05/17/18 04:10 Toxic Granulation Present (Not Present) A 05/17/18 04:10 ABG pH 7.46 pH Units (7.32-7.45) H 05/17/18 02:51 ABG pO2 67 mmHg (85-104) L 05/17/18 02:51 ABG HCO3 28 mEq/L (21-27) H 05/17/18 02:51 ABG Total CO2 29 mEq/L (20-26) H 05/17/18 02:51 ABG O2 Saturation 94 % (95-98) L 05/17/18 02:51 ABG Base Excess 4 mEq/L (-2 to 3) H 05/17/18 02:51 VBG pCO2 54 mmHg (41-51) H 05/18/18 13:56 VBG pO2 87 mmHg (25-50) H 05/18/18 13:56 VBG HCO3 33 mEq/L (21-27) H 05/18/18 13:56 Glucose 147 mg/dL (70-105) H 05/17/18 04:10 B-Natriuretic Peptide 128 pg/mL (Less than 100) H 05/16/18 02:25 - Clinical Findings Intake & Output: Intake & Output 05/17/18 05/18/18 05/18/18 23:59 07:59 15:59 Intake Total 720 / 720 240 / 240 Output Total 150 / 150 800 / 800 Balance 570 / 570 -800 / -800 240 / 240 Weight 86.8 kg - Attending Attestation I examined this patient and my medical decision-making was reviewed with the Resident Physician. I agree with the documented findings, disposition and treatment plan as described except to the extent set forth below. Patient seen and examined. Labs, radiology, chart personally reviewed. 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 Patient also has restrictive physiology from his previous surgeries of the neck and chest. At this time patient is being treated appropriately with bronchodilators and systemic steroid and antibiotic and he started feeling better. I am hoping patient will quit smoking and he can follow-up as outpatient and she will need pulmonary rehabilitation. I have explained this to the patient and he understand plan of care. Patient will need to be on long- term oxygen therapy. Thank you very much for consultation and please do not hesitate to call for any questions
[2018-05-18 14:00] LABS: VBG HCO3 33 mEq/L (21-27); VBG PCO2 54 mmHg (41-51); VBG PO2 87 mmHg (25-50)
[2018-05-18] MEDS ORDERED: *HR* LORazepam 1 MG TABLET PO ONE (21:05)
[2018-05-18] MEDS: Levofloxacin 750 MG/150 ML 750 MG/150 ML BAG IVPB SCH (22:12)
[2018-05-19 03:48] LABS: Basophils % 0.2 %; Eosinophils % 0.1 %; Hematocrit 48.5 % (37.5-50.1); Hemoglobin 16.2 g/dL (12.9-16.9); Immature Granulocytes % 0.6 % (0-4); Lymphocytes # 1.6 K/mcL (0.6-4.6); Lymphocytes % 7.3 %; Mean Corpuscular HGB Conc 33.4 g/dL (31.6-35.5); Mean Corpuscular Hemoglobin 31.8 pg (28.0-33.3); Mean Corpuscular Volume 95.3 fL (83.0-100.0); Mean Platelet Volume 8.7 fL (9.4-12.4); Monocytes # 1.6 K/mcL (0.0-1.3); Monocytes % 7.5 %; Neutrophils # 18.5 K/mcL (1.6-8.9); Platelet Count 247 K/mcL (140-400); Red Blood Count 5.09 M/mcL (4.19-5.50); Red Cell Distribution Width 14.4 % (11.5-14.5); Segmented Neutrophils % 84.3 %
[2018-05-19 04:03] LABS: BUN/Creatinine Ratio 20 (6-26); Blood Urea Nitrogen 19 mg/dL (8-23); Calcium 8.3 mg/dL (8.6-10.3); Carbon Dioxide 31 mEq/L (23-29); Chloride 103 mEq/L (98-107); Glucose 136 mg/dL (70-105); Osmolality,Calculated 290 (280-300); Potassium 3.4 mEq/L (3.5-5.1); Sodium 138 mEq/L (136-145); eGFR For Non-African Americans > 60 (> 60)
[2018-05-19] MEDS: Ipratropium/Albuterol Neb 3 ML IH SCH ×4 (04:08→22:13)
[2018-05-19] MEDS: *HR* Heparin 5,000 UNIT/ML VIAL SQ SCH ×2 (06:24→18:05)
[2018-05-19] MEDS: predniSONE 20 MG TABLET PO SCH (08:50)
[2018-05-19] MEDS: Nicotine 7 MG PATCH.TD24 TD SCH (08:51)
[2018-05-19] MEDS: amLODIPine 5 MG TABLET PO SCH (08:51)
[2018-05-19] MEDS: *HR* OxyCODONE Immed Rel 15 MG TABLET PO PRN ×2 (08:54→15:45)
[2018-05-19] MEDS: Budesonide/Formoterol 160/4.5 1 PUFF INH IH SCH ×2 (10:29→22:13)
--- NOTE | 2018-05-19 11:40 | Internal Med Progress Note ---
Hospitalist Progress Note - Encounter Date of Encounter: 05/19/18 Time of Encounter: 11:40 - Subjective Interval History: 62-year-old male with COPD, chronic hypoxic respiratory failure not compliant with home oxygen, tobacco abuse,CAD status post [place] and CABG, HFpEF, AAA Admitted and being managed for acute on chronic respiratory failure, uncontrolled hypertension, COPD exacerbation. VQ scan done 05/16 shows low probability for pulmonary embolism. The patient is seen and examined at the bedside this morning, sitting up in bed , reports minimal improvement in breathing, now accepting treatment. Continues to refuse BiPAP. ABG done 05/17 shows hypoxia. PCO2 normal limits. He is seen and examined this a.m at the bedside He is improving clinically EKG done this a.m noted Blood pressure remained uncontrolled, increase norvasc Patient still asking to go and smoke Increased Nicotine patch to 21mg Continue current management - Exam Vitals: Temp Pulse Resp BP Pulse Ox 96.5 F L 85 18 154/83 90 05/19/18 11:08 05/19/18 11:08 05/19/18 11:08 05/19/18 11:08 05/19/18 11:08 Exam: Gen.: Vitals noted. No acute distress. AAOx3. Sitting up comfortably in bed. Speaking in full sentences HEENT: PERRL/EOMI, oropharynx clear, Normocephalic, atraumatic, moist mucous membranes Cardiac: RRR, no murmur, +S1/S2, occasional PVC Pulmonary: CTAb, no wheezing today Abdomen: soft, non-tender, BS noted, no guarding MSK: ROM intact, no joint swelling noted Extremities: no BLE edema, nontender calf, no cyanosis or clubbing Neuro: A&Ox3, moves all extremities, no focal deficits Psych: Appropriate mood and behavior - Assessment and Plan (1) Acute exacerbation of chronic obstructive airways disease Current Visit: Yes Status: Acute Assessment and Plan: Continue current management. (2) Acute and chronic respiratory failure Current Visit: Yes Status: Acute Assessment and Plan: Acute on chronic respiratory failure likely secondary to COPD exacerbation Chest x-ray shows chronic changes with no acute disease. VQ scan shows low probability for pulmonary embolism Leukocytosis probably due to the use of prednisone as outpatient Patient reports using home oxygen as needed, however her insurance case manager prescription was for continuous 2.5 L oxygen. Currently on 3 L continue same. Continue Levaquin, DuoNebs scheduled, albuterol when necessary Continue prednisone Continue home Symbicort Continues to refuse BiPAP Pulm eval appreciated patient is full code (3) CAD (coronary artery disease) Current Visit: Yes Status: Chronic Assessment and Plan: Denies chest pain, troponin unremarkable EKG reviewed showing junctional rhythm which is consistent with previous Continue home medications (4) Heart failure with preserved ejection fraction Current Visit: Yes Status: Chronic Assessment and Plan: Euvolemic at this time. Prior echo 03/02 noted for preserved EF. Continue home medications. (5) DVT prophylaxis Current Visit: Yes Status: Acute Assessment and Plan: - Heparin 5000 units every 12 hours (6) Leukocytosis Current Visit: Yes Status: Acute Assessment and Plan: Patient was taking 70 mg of prednisone daily by mouth as outpatient. No pneumonia on chest x-ray. Afebrile. Continue prednsione Continue to monitor. (7) Hypertension Current Visit: Yes Status: Chronic Assessment and Plan: Uncontrolled on presentation at 194/109 Remains uncontrolled Increase Norvasc to 10mg Continue hydralazne prn Continue to monitor (8) Tobacco abuse Current Visit: Yes Status: Chronic Assessment and Plan: Continues to smoke 1 pack per day. Tobacco cessation counseling done. Continue nicotine replacement therapy. - Time Spent with Patient Total time spent is greater than 50% in coordination of care (as documented) at patient's floor/unit and/or counseling patient: Plan of Care Discussed with: patient Internal Medicine: Result - Labs CBC & Chem 7: 05/19/18 03:32 05/19/18 03:32 Labs: Short CBC 05/19/18 Range/Units 03:32 WBC 22.0 H (4.3-11.1) K/mcL Hgb 16.2 (12.9-16.9) g/dL Hct 48.5 (37.5-50.1) % Plt Count 247 (140-400) K/mcL Neutrophils # 18.5 H (1.6-8.9) K/mcL BMP 05/19/18 03:32 Sodium 138 Potassium 3.4 L Chloride 103 Carbon Dioxide 31 H BUN 19 Creatinine 0.93 Glucose 136 H Calcium 8.3 L - ABG Interpretation ABG results: ABG ABG pH 7.46 pH Units (7.32-7.45) H 05/17/18 02:51 ABG pCO2 39 mmHg (35-45) 05/17/18 02:51 ABG pO2 67 mmHg (85-104) L 05/17/18 02:51 ABG O2 Saturation 94 % (95-98) L 05/17/18 02:51 Consult Discharge Plan - Plan Referrals: Forrest Tyson MD [Primary Care Provider] - 05/23/18 9:45 am (Please follow up as schedule...) Prescriptions: amLODIPine [Norvasc] 10 mg PO DAILY #60 tablet levoFLOXacin [Levaquin] 750 mg PO DAILY #4 tablet Omeprazole [PriLOSEC] 20 mg PO DAILY@629 #30 capsule.dr (2) Acute and chronic respiratory failure Qualifiers: Respiratory failure complication: hypoxia Qualified Code(s): J96.21 - Acute and chronic respiratory failure with hypoxia (3) CAD (coronary artery disease) Qualifiers: Coronary Disease-Associated Artery/Lesion type: bypass graft [place] vs. transplanted heart: [place] heart Associated angina: without angina Qualified Code(s): I25.810 - Atherosclerosis of coronary artery bypass graft(s) without angina pectoris (6) Leukocytosis Qualifiers: Leukocytosis type: unspecified Qualified Code(s): D72.829 - Elevated white blood cell count, unspecified (7) Hypertension Qualifiers: Hypertension type: essential hypertension Qualified Code(s): I10 - Essential (primary) hypertension
[2018-05-19] MEDS ORDERED: Nicotine 7 MG PATCH.TD24 TD SCH (11:43)
[2018-05-19] MEDS ORDERED: Nicotine 21 MG PATCH.TD24 TD SCH (12:00)
--- NOTE | 2018-05-19 14:16 | Discharge Summary ---
- NOTES TO OUTPATIENT PROVIDER Notes to Outpatient Provider: Follow up with Pulmonology and PCP Orders not resulted at time of discharge: Pending orders 05/19/18 10:28 EKG [ECG 12 lead ECG] [ECG] Stat 05/20/18 04:00 Chem 7 [Basic Metabolic Panel] AM 0400 Complete Blood Count [HEME] AM 0400 Date of Encounter: 05/19/18 Time of Encounter: 14:12 - Discharge Diagnosis (1) Acute exacerbation of chronic obstructive airways disease Priority: Primary Status: Acute (2) Acute and chronic respiratory failure Priority: Primary Status: Acute Qualifiers: Respiratory failure complication: hypoxia Qualified Code(s): J96.21 - Acute and chronic respiratory failure with hypoxia (3) CAD (coronary artery disease) Priority: Secondary Status: Chronic Qualifiers: Coronary Disease-Associated Artery/Lesion type: bypass graft [place] vs. transplanted heart: [place] heart Associated angina: without angina Qualified Code(s): I25.810 - Atherosclerosis of coronary artery bypass graft(s) without angina pectoris (4) Heart failure with preserved ejection fraction Priority: Secondary Status: Chronic (5) DVT prophylaxis Priority: Primary Status: Acute (6) Leukocytosis Priority: Primary Status: Acute Qualifiers: Leukocytosis type: unspecified Qualified Code(s): D72.829 - Elevated white blood cell count, unspecified (7) Hypertension Priority: Secondary Status: Chronic Qualifiers: Hypertension type: essential hypertension Qualified Code(s): I10 - Essential (primary) hypertension (8) Tobacco abuse Priority: Secondary Status: Chronic Hospital course: Mr. Nolan is a 62 year old male with medical history of advanced COPD with severe obstructive pattern on PFTs, chronic respiratory failure on continuous home oxygen not compliant, heart failure with preserved ejection fraction, hypertension and heavy tobacco use. The patient was admitted for management of COPD exacerbation. Incidental finding of leukocytosis metabolic respiratory acidosis and hypoxia. Chest x-ray showed chronic changes without any acute process, VQ scan showed low risk for pulmonary embolism, chemistry was within normal limits. BNP was within normal limits. The patient continued to refuse treatments, refusing nebulizer treatments, refusing to be placed on BiPAP, requesting to go to smoke every day. He is able to complete his sentences and is alert oriented 3. Pulmonology evaluation was requested per patient's request, and recommended continuation of current management with steroids, antibiotics and breathing treatments as well as pulmonary rehabilitation. Patient was awaiting physical and occupational therapy review, due to difficulty with maintaining oxygenation ambulation. The patient drawn physician by RN the patient wants to leave AMA Prescription for antibiotics and Amlodipne sent to pharmacy, patient also possibly having nicotine withdrawal and requesting BZPDs all the time Follow up with PCP and Pulmonology Discharge discussed with: patient, nurse - Time Spent with Patient Total time spent providing and/or coordinating discharge services: - Discharge Medications Prescriptions: amLODIPine [Norvasc] 10 mg PO DAILY #60 tablet levoFLOXacin [Levaquin] 750 mg PO DAILY #4 tablet Omeprazole [PriLOSEC] 20 mg PO DAILY@0630 #30 capsule. Home Medications: Albuterol Sulfate [Ventolin Hfa] 2 puff IH BID PRN 05/16/18 [History] Atorvastatin [Lipitor] 40 mg PO HS 05/16/18 [History] Benzonatate [Tessalon] 100 mg PO TID PRN 05/16/18 [History] Budesonide/Formoterol 160/4.5 [Symbicort 160/4.5] 2 puff IH BIDR 05/16/18 [ History] Clopidogrel [Plavix] 75 mg PO DAILY 05/16/18 [History] Cyanocobalamin (B-12) [Vitamin B12] 1,000 mcg IM QMONTH 05/16/18 [History] Lisinopril [Zestril] 10 mg PO DAILY 05/16/18 [History] Oxycodone HCl 15 mg PO Q6H PRN 05/16/18 [History] PredniSONE [Deltasone] 20 mg PO DAILY 05/16/18 [History] Tamsulosin [Flomax] 0.4 mg PO DAILY 05/16/18 [History] Testosterone Cypionate [Depo-Testosterone] 200 mg IM Q2W 05/16/18 [History] Tiotropium [Spiriva] 2 puff IH DAILY 05/16/18 [History] Omeprazole [PriLOSEC] 20 mg PO DAILY@0630 #30 capsule. 05/19/18 [Rx] amLODIPine [Norvasc] 10 mg PO DAILY #60 tablet 05/19/18 [Rx] levoFLOXacin [Levaquin] 750 mg PO DAILY #4 tablet 05/19/18 [Rx] Allergies/Adverse Reactions: 3 Allergy/AdvReac Type Severity Reaction Status Date / Time No Known Allergies Allergy Verified 02/19/17 16:54 Date of admission: 05/16/18 04:30 Primary care physician: Forrest Tyson MD Consults: 05/16/18 05:02 Consult to Nurse Navigator [CONS] Routine Comment: 05/18/18 10:27 Consult to Pulmonology [CONS] Routine Consulting Provider: [facility] [place] Reason for Consult: COPDE Call Completed: Yes 05/19/18 11:33 Consult to Occupational Therapy [CONS] Routine Comment: Evaluate, develop and implement POC Reason for Consult: Evaluation Does patient have active BEDREST order?: No Is patient medically & hemodynamically stable?: Yes Consult to Physical Therapy [CONS] Routine Comment: Evaluate, develop and implement POC Reason for Consult: Evaluation Does patient have active BEDREST order?: No Is patient medically & hemodynamically stable?: Yes Discharging clinician: Kurtis Ware Anticipated date of discharge: 05/19/18 - Constitutional Vitals: Temp Pulse Resp BP Pulse Ox 97.6 F 94 19 139/78 90 05/19/18 11:52 05/19/18 11:52 05/19/18 11:52 05/19/18 11:52 05/19/18 11:52 - Head Head exam: Present: atraumatic, normocephalic - Eye Eye exam: Present: PERRL, conjuntiva pink, sclera anicteric Pupils: Present: PERRL - Neck Neck exam general surgery: Present: supple, trachea midline. Absent: lymphadenopathy - Respiratory Respiratory exam: Present: wheezes. Absent: accessory muscle use, rales, rhonchi - Cardiovascular Cardiovascular exam: Present: RRR, +S1, +S2. Absent: diastolic murmur, gallop, rubs, systolic murmur - GI/Abdominal GI/Abdominal exam: Present: normal bowel sounds, soft, no peritoneal signs. Absent: distended, tenderness - Extremities Exam Extremities exam: Present: warm, radial pulses palpable and symmetrical. Absent : calf tenderness, cyanotic, pedal edema - Neurological Exam Neurological exam: Present: CN II-XII intact, oriented X3, no focal deficits. Absent: pronater drift, facial droop, speech deficit - Skin Skin exam: Present: dry, intact - Patient Status Disposition: Left Against Medical Advice Condition: Good - Discharge Instructions Follow Up With: Forrest Tyson MD [Primary Care Provider] - 05/23/18 9:45 am (Please follow up as schedule...) - Diet and Activity Activity: wear oxygen at all times Diet: low fat, low cholesterol, low salt diet
[2018-05-19] MEDS: Levofloxacin 750 MG/150 ML 750 MG/150 ML BAG IVPB SCH (22:39)
[2018-05-20] MEDS: Ipratropium/Albuterol Neb 3 ML IH SCH ×2 (03:49→10:22)
[2018-05-20] MEDS: *HR* Heparin 5,000 UNIT/ML VIAL SQ SCH (06:05)
[2018-05-20] MEDS: *HR* OxyCODONE Immed Rel 15 MG TABLET PO PRN (06:05)
[2018-05-20 06:23] LABS: Basophils % 0.2 %; Eosinophils # 0.2 K/mcL (0.0-0.6); Eosinophils % 0.9 %; Hematocrit 50.8 % (37.5-50.1); Hemoglobin 16.7 g/dL (12.9-16.9); Immature Granulocytes % 0.8 % (0-4); Lymphocytes # 2.3 K/mcL (0.6-4.6); Lymphocytes % 12.5 %; Mean Corpuscular HGB Conc 32.9 g/dL (31.6-35.5); Mean Corpuscular Hemoglobin 31.6 pg (28.0-33.3); Mean Corpuscular Volume 96.2 fL (83.0-100.0); Mean Platelet Volume 8.7 fL (9.4-12.4); Monocytes # 1.5 K/mcL (0.0-1.3); Monocytes % 8.4 %; Neutrophils # 13.9 K/mcL (1.6-8.9); Platelet Count 246 K/mcL (140-400); Red Blood Count 5.28 M/mcL (4.19-5.50); Red Cell Distribution Width 14.6 % (11.5-14.5); Segmented Neutrophils % 77.2 %
[2018-05-20 06:59] VITALS: BP 160/75
[2018-05-20] MEDS: predniSONE 20 MG TABLET PO SCH (07:43)
[2018-05-20] MEDS: amLODIPine 5 MG TABLET PO SCH (07:43)
[2018-05-20 08:02] LABS: BUN/Creatinine Ratio 25 (6-26); Blood Urea Nitrogen 22 mg/dL (8-23); Calcium 8.4 mg/dL (8.6-10.3); Carbon Dioxide 29 mEq/L (23-29); Chloride 104 mEq/L (98-107); Glucose 100 mg/dL (70-105); Osmolality,Calculated 295 (280-300); Potassium 3.6 mEq/L (3.5-5.1); Sodium 141 mEq/L (136-145); eGFR For Non-African Americans > 60 (> 60)
[2018-05-20] MEDS: Budesonide/Formoterol 160/4.5 1 PUFF INH IH SCH (10:22)
--- NOTE | 2018-05-20 12:09 | Internal Med Progress Note ---
Hospitalist Progress Note - Encounter Date of Encounter: 05/20/18 Time of Encounter: 12:07 - Subjective Interval History: Pt seen and examined in the room, he feels good and no sob or cough. He wants to go home. - Exam Vitals: Temp Pulse Resp BP Pulse Ox 97.8 F 72 18 160/75 95 05/20/18 06:58 05/20/18 06:58 05/20/18 06:58 05/20/18 06:58 05/20/18 06:58 Exam: PHYSICAL EXAMINATION: GENERAL APPEARANCE: The patient is alert, oriented and in no acute distress. HEENT: Head is normocephalic. The sinuses are nontender. Pupils are equal and reactive. The nares are patent. Oropharynx clear without lesions. NECK: Supple without lymphadenopathy. HEART: Regular rate and rhythm. LUNGS: Scattered wheezing/rhonchi bilaterally. ABDOMEN: Soft, nontender, nondistended with good bowel sounds heard. Inguinal area is normal. EXTREMITIES: Without cyanosis, clubbing or edema. NEUROLOGICAL: Gross nonfocal. SKIN: Warm and dry without any rash. - Assessment and Plan (1) Acute exacerbation of chronic obstructive airways disease Status: Acute Assessment and Plan: Continue current management. (2) Acute and chronic respiratory failure Status: Acute Assessment and Plan: Acute on chronic respiratory failure likely secondary to COPD exacerbation Chest x-ray shows chronic changes with no acute disease. 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 Currently on 3 L continue same. Continue Levaquin, DuoNebs scheduled, albuterol when necessary Continue prednisone Continue home Symbicort Continues to refuse BiPAP Pulm eval appreciated patient is full code (3) CAD (coronary artery disease) Status: Chronic Assessment and Plan: Denies chest pain, troponin unremarkable EKG reviewed showing junctional rhythm which is consistent with previous Continue home medications (4) Heart failure with preserved ejection fraction Status: Chronic Assessment and Plan: Euvolemic at this time. Prior echo 03/02 noted for preserved EF. Continue home medications. (5) DVT prophylaxis Status: Acute (6) Leukocytosis Status: Acute Assessment and Plan: Patient was taking 70 mg of prednisone daily by mouth as outpatient. No pneumonia on chest x-ray. Afebrile. Continue prednsione Continue to monitor. (7) Hypertension Status: Chronic Assessment and Plan: Uncontrolled on presentation at 194/109 Remains uncontrolled Increase Norvasc to 10mg Continue hydralazne prn Continue to monitor (8) Tobacco abuse Status: Chronic Assessment and Plan: Continues to smoke 1 pack per day. Tobacco cessation counseling done. Continue nicotine replacement therapy. - Summary of Assessment and Plan Summary of Assessment and Plan: Pt will be discharged home today with meds prescribed by Dr. Ware. - Time Spent with Patient Total time spent is greater than 50% in coordination of care (as documented) at patient's floor/unit and/or counseling patient: Greater than 35 minutes Plan of Care Discussed with: patient Internal Medicine: Result - Labs CBC & Chem 7: 05/20/18 05:52 05/20/18 05:52 Labs: Short CBC 05/20/18 Range/Units 05:52 WBC 18.1 H (4.3-11.1) K/mcL Hgb 16.7 (12.9-16.9) g/dL Hct 50.8 H (37.5-50.1) % Plt Count 246 (140-400) K/mcL Neutrophils # 13.9 H (1.6-8.9) K/mcL BMP 05/20/18 05:52 Sodium 141 Potassium 3.6 Chloride 104 Carbon Dioxide 29 BUN 22 Creatinine 0.87 Glucose 100 Calcium 8.4 L - ABG Interpretation ABG results: ABG ABG pH 7.46 pH Units (7.32-7.45) H 05/17/18 02:51 ABG pCO2 39 mmHg (35-45) 05/17/18 02:51 ABG pO2 67 mmHg (85-104) L 05/17/18 02:51 ABG O2 Saturation 94 % (95-98) L 05/17/18 02:51 Consult Discharge Plan - Plan Referrals: Forrest Tyson MD [Primary Care Provider] - 05/23/18 9:45 am (Please follow up as schedule...) Prescriptions: amLODIPine [Norvasc] 10 mg PO DAILY #60 tablet levoFLOXacin [Levaquin] 750 mg PO DAILY #4 tablet Omeprazole [PriLOSEC] 20 mg PO DAILY@629 #30 capsule.dr (2) Acute and chronic respiratory failure Qualifiers: Respiratory failure complication: hypoxia Qualified Code(s): J96.21 - Acute and chronic respiratory failure with hypoxia (3) CAD (coronary artery disease) Qualifiers: Coronary Disease-Associated Artery/Lesion type: bypass graft [place] vs. transplanted heart: [place] heart Associated angina: without angina Qualified Code(s): I25.810 - Atherosclerosis of coronary artery bypass graft(s) without angina pectoris (6) Leukocytosis Qualifiers: Leukocytosis type: unspecified Qualified Code(s): D72.829 - Elevated white blood cell count, unspecified (7) Hypertension Qualifiers: Hypertension type: essential hypertension Qualified Code(s): I10 - Essential (primary) hypertension
== END 2018-05-20 10:45 | disposition left against medical advice (07) ==
LOC: 2ANU 02:15 → EMEROO 02:15 → SUATTDRO 04:30 → 2ANU 04:56
PROVIDERS: ADMIT Internal Medicine; ATTEND Internal Medicine